=== PATIENT | female | born 1955 | race Caucasian/White ===

== ENCOUNTER 2017-06-22 10:17 | Emergency (ER) | payer OTHER ==
[2017-06-22 10:27] VITALS: TEMP 98.7; BMI 29.2
--- NOTE | 2017-06-22 10:33 | PDOC ---
History of Present Illness - General Chief Complaint: Respiratory Stated Complaint: SOB Time Seen by Provider: 06/22/17 10:32 - History of Present Illness Initial Comments: 06/22/17 10:47 Ms. Lam is a 62 yo female w/ pmh of Asthma and depression who presents to the ER c/o a 2 day history of cough, rasping voice, and chest pain that she reports goes to her back. She also reports she feels "congested." On further interview she admits to stubbing her toe as well last night and thinks it is broken (4th left). The patient denies headache and dizziness. Denies fever, chills, nausea, vomit, diarrhea and constipation. Denies dysuria, frequency, urgency and hematuria. Allergies: NKDA Social: 45 pack year history Past History - Past Medical History Allergies/Adverse Reactions: Allergies Allergy/AdvReac Type Severity Reaction Status Date / Time No Known Allergies Allergy Verified 06/22/17 10:27 Home Medications: Ambulatory Orders Alprazolam [Xanax] 1 mg PO PRN PRN 06/22/17 Azithromycin [Zithromax -] 250 mg PO UTDICT #6 tab 06/22/17 Budesonide/Formeterol Fumarate [SYMBICORT 80/4.5mcg -] 2 puff IH BID 06/22/17 Bupropion HCl [Wellbutrin Xl -] 450 mg PO DAILY 06/22/17 Prednisone 40 mg PO DAILY #12 tablet 06/22/17 Zolpidem Tartrate [Ambien] 10 mg PO HS 06/22/17 Asthma: Yes COPD: No - Suicide/Smoking/Psychosocial Hx Smoking History: Current every day smoker Number of Cigarettes Smoked Daily: 8 Information on smoking cessation initiated: No Hx Alcohol Use: Yes (SOCIAL) Drug/Substance Use Hx: No Review of Systems - Review of Systems Comments:: 06/22/17 10:51 GENERAL/CONSTITUTIONAL: No fever or chills. No weakness. HEAD, EYES, EARS, NOSE AND THROAT: No change in vision. No ear pain or discharge. No sore throat. CARDIOVASCULAR: +Midline chest pain she says "radiates to her back" RESPIRATORY: +Cough for several days, no wheezing, or hemoptysis. GASTROINTESTINAL: No nausea, vomiting, diarrhea or constipation. GENITOURINARY: No dysuria, frequency, or change in urination. MUSCULOSKELETAL: No joint or muscle swelling or pain. No neck or back pain. SKIN: No rash NEUROLOGIC: No headache, vertigo, loss of consciousness, or change in strength/ sensation. ENDOCRINE: No increased thirst. No abnormal weight change HEMATOLOGIC/LYMPHATIC: No anemia, easy bleeding, or history of blood clots. ALLERGIC/IMMUNOLOGIC: No hives or skin allergy. *Physical Exam - Vital Signs Last Vital Signs Temp Pulse Resp BP Pulse Ox 98.7 F 89 20 115/64 98 06/22/17 10:23 06/22/17 10:23 06/22/17 10:23 06/22/17 10:23 06/22/17 10:23 - Physical Exam Comments: 06/22/17 10:52 GENERAL: Awake, alert, and fully oriented, in no acute distress HEAD: No signs of trauma, normocephalic, atraumatic EYES: PERRLA, EOMI, sclera anicteric, conjunctiva clear ENT: Auricles normal inspection, hearing grossly normal, nares patent, oropharynx clear without exudates. Moist mucosa NECK: Normal ROM, supple, no lymphadenopathy, JVD, or masses LUNGS: +Reproducible pain with palpation of sternum. Speaks full sentences, clear to auscultation bilaterally HEART: Regular rate and rhythm, normal S1 and S2, no murmurs, rubs or gallops, peripheral pulses normal and equal bilaterally. ABDOMEN: Soft, nontender, normoactive bowel sounds. No guarding, no rebound. No masses EXTREMITIES: Normal inspection, Normal range of motion, no edema. No clubbing or cyanosis. NEUROLOGICAL: Cranial nerves II through XII grossly intact. Normal speech, normal gait, no focal sensorimotor deficits SKIN: Warm, Dry, normal turgor, no rashes or lesions noted. ED Treatment Course - LABORATORY CBC & Chemistry Diagram: 06/22/17 11:23 06/22/17 11:23 Medical Decision Making - Medical Decision Making 06/22/17 11:15 Ms. Lam presents w/ symptoms consistent with Asthma exacerbation. Given patient's family history of father w/ heart attack at age 63 and smoking history will r/o ACS w/ serial troponins/EKG as well. 06/22/17 14:58 CXR negative for acute pathology, labs all grossly wnl. Talked to patient's PCP as well and related findings. Will d/c patient to home with z-pack and 40mg prednisone for 3 days. Patient and PCP verbalized agreement with plan. 06/22/17 15:34 Foot X-ray negative for acute fracture. Ortho f/u given with instructions to use hard soled shoe until able to discuss with them. *DC/Admit/Observation/Transfer Diagnosis at time of Disposition: departure - Discharge Dispostion Disposition: HOME - Prescriptions Prescriptions: Azithromycin [Zithromax -] 250 mg PO UTDICT #6 tab Prednisone 40 mg PO DAILY #12 tablet - Referrals Referrals: Amador Simmons MD [Primary Care Provider] - Loco Cortez MD [Staff Physician] - - Patient Instructions Printed Discharge Instructions: DI for Asthma -- Adult, DI for Cough -- Adult Additional Instructions: Please return if any fever, chills, difficulty breathing, pain, or other concerning symptoms. Follow-up with Dr. Simmons as discussed in 1-2 days. Take medications as described. You can also follow-up with Dr. Cortez for your foot pain as needed. You should wear a hard soled shoe for protection until cleared. - Post Discharge Activity
--- NOTE | 2017-06-22 10:52 | PDOC ---
Attending Attestation - HPI HPI: 06/22/17 11:05 The patient is a 62 year old female, with a significant past medical history of Asthma and Depression who presents to the emergency department with difficulty breathing and chest pain for the past 2 days. Patient reports mid sternal chest pain, radiating to her back with associated SOB. Patient reports increasing dyspnea on exertion. Patient also endorses nonproductive cough, clear rhinorrhea , and congestion for the past week. Patient notes family hx of cardiac disease. Note, patient is a 45 year pack/day smoker. Patient denies any hormone therapy, recent travel, recent surgeries, hx of DVT. PCP: Dr. Soniya Clark - Physicial Exam PE: 06/22/17 11:05 Vitals: Triage Vital signs reviewed General Appearance: no acute distress, well nourished well developed, Head: Atraumatic, normocephalic Neck: Supple;No Nuchal rigidity Chest Wall: Nontender Cardiac: Regular rate and rhythm, no murmurs, no rubs, no gallops, Lungs: Clear to auscultation bilateral, good air movement bilaterally, Abdomen: Soft, nondistended, normal bowel sounds, nontender to palpation Extremities: Full range of motion to all extremities, no cyanosis, clubbing, or edema Skin: Warm and dry, no rashes or lesions, no petechiae - Medical Decision Making 06/22/17 11:05 Documentation prepared by Alejandrina Barrientos, acting as medical sales for Nabeel Ball MD, /DO. <Alejandrina Barrientos - Last Filed: 06/22/17 11:18> - Resident Resident Name: Moisés Sanford - ED Attending Attestation I have performed the following: I have examined & evaluated the patient, The case was reviewed & discussed with the resident, I agree w/resident's findings & plan, Exceptions are as noted - Medical Decision Making 06/22/17 15:30 Well-appearing no apparent distress heart score 3 very low suspicion for chest pain history and examination most consistent with viral URI [place] in by asthma exacerbation. Nonischemic EKG troponin negative 2. Status post DuoNeb patient feels much better Case discussed with patient's primary care provider we'll discharge on azithromycin and prednisone for 3 days she'll follow-up with her doctor on Saturday Findings, need for follow-up, strict return instructions discussed with patient. <Nabeel Ball - Last Filed: 06/22/17 15:31>
[2017-06-22] MEDS ORDERED: ALBUTEROL SO4 2.5/IPRATROPIUM 0.5 INH SOL 3 ML VIAL.NEB. NEB ONE (10:58)
[2017-06-22] MEDS: ALBUTEROL SO4 2.5/IPRATROPIUM 0.5 INH SOL 3 ML VIAL.NEB. NEB SCH ×4 (11:00→11:49)
[2017-06-22 11:38] LABS: BASOPHIL 1.4 % (0-2.0); EOSINOPHIL 1.9 % (0-4.5); MCHC 33.5 g/dl (32.0-36.0); MEAN CELL VOLUME 95.4 fl (80-96); MEAN PLT VOLUME 8.1 fl (7.5-11.1); PLATELET COUNT 267 K/MM3 (134-434); RDW 13.1 % (11.6-15.6); WHITE BLOOD COUNT 9.1 K/mm3 (4.0-10.0)
[2017-06-22 11:59] LABS: ALBUMIN 3.8 g/dl (3.4-5.0); ANION GAP 7 (8-16); CALCIUM 8.7 mg/dL (8.5-10.1); CO2 23 mmol/L (21-32); CREATININE 0.7 mg/dL (0.55-1.02); GLUCOSE,RANDOM 102 mg/dL (74-106); SGPT/ALT 30 U/L (12-78)
[2017-06-22 12:04] LABS: ALK PHOS 60 U/L (45-117); BILIRUBIN,TOTAL 0.8 mg/dL (0.2-1.0); CPK 100 IU/L (26-192); SGOT/AST 24 U/L (15-37); TOT PROT 7.4 g/dl (6.4-8.2); TROPONIN I < 0.02 ng/ml (0.00-0.05)
[2017-06-22 15:06] LABS: CPK 70 IU/L (26-192); TROPONIN I < 0.02 ng/ml (0.00-0.05)
[2017-06-22 15:49] VITALS: BP 126/70; PULSE 88
--- NOTE | 2017-06-23 08:44 | EKG ---
Test Reason : Blood Pressure : / mmHG Vent. Rate : 085 BPM Atrial Rate : 085 BPM P-R Int : 148 ms QRS Dur : 090 ms QT Int : 350 ms P-R-T Axes : 068 026 062 degrees QTc Int : 416 ms NORMAL SINUS RHYTHM POSSIBLE LEFT ATRIAL ENLARGEMENT BORDERLINE ECG WHEN COMPARED WITH ECG OF 29-JUL-2007 18:00, NO SIGNIFICANT CHANGE WAS FOUND Confirmed by ANITA CHICAS MD ([id number]) on 06/23/2017 8:44:04 AM Referred By: Confirmed By:ANITA CHICAS MD
== END 2017-06-22 15:48 | disposition home or self-care (01) ==
LOC: JER 10:17
PROC: 3E0F7GC Introduction of Other Therapeutic Substance into Respiratory Tract, Via Natural or Artificial Opening (ICD-10-PCS; principal; 2017-06-22)
DX: J45.901 Unspecified asthma with (acute) exacerbation (principal)
CPT/HCPCS: 36415; 71020-TC; 73630-TC-LT; 80053; 82550; 84484; 85025; 93005; 93010; 94640; 99284-25

== ENCOUNTER 2018-01-24 13:18 | Emergency (ER) | payer OTHER ==
[2018-01-24 13:25] VITALS: BMI 28.9
--- NOTE | 2018-01-24 13:48 | PDOC ---
History of Present Illness - General Chief Complaint: Headache Stated Complaint: HEADACHE Time Seen by Provider: 01/24/18 13:25 History Source: Patient Exam Limitations: No Limitations - History of Present Illness Initial Comments: 01/24/18 13:50 This is a 62 YOF with h/o asthma, anxiety, depression, and heavy smoking hx (10 cigarettes daily now; ~45 pack-year hx) who p/w two weeks of constant dull frontal headache with additional stronger left baptism throbbing episodes lasting seconds at a time and occurring too many times daily to count. The DE LEÓN is not made worse by light or noise and has not kept her from sleeping, but is present at all times during the day including when she awakens from sleep (even when she awakens during the night to urinate). She has tried many OTC medications without relief, including ibuprofen, Tylenol, naproxen, Sudafed, Zyrtec, and other medications. She suffered head trauma about a month ago when she fell onto her night stand and suffered an abrasion to the left top of the head, as well as a L>R black eye, and was not seen medically for this and did not have a head CT. She notes recent intentional weight loss, and very high stress/anxiety level because her dog needed to be euthanized about a month ago. She denies fever, chills, night sweats, unintentional weight loss, swollen lymph nodes, dizziness, nausea, vomiting, diarrhea, constipation, chest pain, SOB, abdominal pain, cough/runny nose/sore throat, numbness, tingling, focal weakness, urinary retention or incontinence, dysuria, or other symptoms. She gets regular mammograms which have been normal. Past History - Past Medical History Allergies/Adverse Reactions: Allergies Allergy/AdvReac Type Severity Reaction Status Date / Time No Known Allergies Allergy Verified 01/24/18 13:21 Home Medications: Ambulatory Orders Alprazolam [Xanax] 1 mg PO PRN PRN 06/22/17 Budesonide/Formeterol Fumarate [SYMBICORT 80/4.5mcg -] 2 puff IH BID 06/22/17 Bupropion HCl [Wellbutrin Xl -] 450 mg PO DAILY 06/22/17 Zolpidem Tartrate [Ambien] 10 mg PO HS 06/22/17 Prednisone 40 mg PO ASDIR 01/24/18 Asthma: Yes COPD: No - Immunization History Immunization Up to Date: Yes - Suicide/Smoking/Psychosocial Hx Smoking History: Current every day smoker Have you smoked in the past 12 months: No Number of Cigarettes Smoked Daily: 10 Information on smoking cessation initiated: No Hx Alcohol Use: No Drug/Substance Use Hx: No Review of Systems - Review of Systems Able to Perform ROS?: Yes Constitutional: No: Chills, Fever, Malaise, Night Sweats, Weakness, Unexplained wgt Loss HEENTM: No: Eye Pain, Blurred Vision, Recent change in vision, Ear Pain, Nose Congestion, Tinnitus, Nose Bleeding, Hearing Loss, Throat Pain, Dental Problems Respiratory: No: Cough, Shortness of Breath Cardiac (ROS): No: Chest Pain, Palpitations ABD/GI: No: Constipated, Diarrhea, Nausea, Vomiting : No: Burning, Dysuria Musculoskeletal: No: Back Pain, Neck Pain Integumentary: No: Bruising, Rash Neurological: Yes: Headache. No: Numbness, Tingling, Weakness, Dizziness Psychiatric: Yes: Anxiety, Depression, Stressors Endocrine: No: Unexplained Weight Gain, Unexplained Weight Loss *Physical Exam - Vital Signs Last Vital Signs Temp Pulse Resp BP Pulse Ox 98.3 F 90 18 122/72 97 01/24/18 13:22 01/24/18 13:22 01/24/18 13:22 01/24/18 13:22 01/24/18 13:22 01/24/18 15:40 Facial trauma exam: no midline vertebral tenderness C/T/L spine, no back hematoma, PERRLA, moving all extremities, no scalp contusion, no cephalohematoma , no scalp laceration, no raccoon eyes, no maria sign, no hemotympanum, no CSF rhinorrhea/otorrhea. - Physical Exam General Appearance: Yes: Nourished, Appropriately Dressed, Other ( intermittently tearful, laying on hospital bed with light out and holding forehead). No: Apparent Distress HEENT: positive: EOMI, LIVIA, Normal Voice, TMs Normal, Hearing Grossly Normal, Other (frontal and ethmoid sinus ttp, no left baptism ttp). negative: Pale Conjunctivae, Scleral Icterus (R), Scleral Icterus (L), Nasal Congestion Neck: positive: Trachea midline, Supple. negative: Tender, Rigid Respiratory/Chest: positive: Lungs Clear, Normal Breath Sounds. negative: Respiratory Distress, Crackles, Rhonchi, Stridor, Wheezing Cardiovascular: positive: Regular Rhythm, Regular Rate, S1, S2. negative: Edema , JVD, Murmur Gastrointestinal/Abdominal: positive: Normal Bowel Sounds, Soft. negative: Tender, Organomegaly, Pulsatile Mass, Guarding Musculoskeletal: positive: Normal Inspection. negative: Decreased Range of Motion, Vertebral Tenderness Extremity: positive: Normal Capillary Refill, Normal Inspection, Normal Range of Motion. negative: Tender, Cyanosis Integumentary: positive: Normal Color, Dry, Warm. 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 negative : EOM Palsy, Facial Droop, Numbness, Sensory Deficit, Confused, Disoriented Heart Score/ECG Review #1 01/24/18 14:42 NSR rate 69 with normal axis and intervals, no ischemic changes ED Treatment Course - LABORATORY CBC & Chemistry Diagram: 01/24/18 14:23 01/24/18 14:23 Medical Decision Making - Medical Decision Making 01/24/18 13:49 Adult female Pt p/w headache, no reported mechanism for injury, no new red flag symptoms (see HPI). DE LEÓN not worse on awakening in the AM, no B symptoms, trauma, fever, syncope, vision loss, n/t/w focally, sudden onset, etc. Initial Vital Signs Temp Pulse Resp BP Pulse Ox 98.3 F 90 18 122/72 97 01/24/18 13:22 01/24/18 13:22 01/24/18 13:22 01/24/18 13:22 01/24/18 13:22 Exam: Results as noted in Physical Exam section. DDX IBNLT primary DE LEÓN syndrome (tension/migraine/cluster/other incl. primary cough DE LEÓN, exertional DE LEÓN, postcoital DE LEÓN), trigeminal neuralgia, zoster, SAH ( mili. sudden onset), venous sinus thrombosis (mili. OCP//menstruating), subdural or epidural hematoma (mili. after trauma or childbirth), ruptured/ acutely expanded aneurysm, preeclampsia/eclampsia, encephalitis, meningitis, glaucoma, atypical PNA, idiopathic intracranial hypertension, GCA (uncommon <50 yo), mass lesion, brain metastasis (mili. known CA patients and/or DE LEÓN with increasing severity/frequency), brain abscess (mili. immunocompromised patients) , DKA, CO poisoning, etc. W/U ordered: CBCD CMP Mg Phos UA UCx hCG Head CT TX ordered: NSAIDs, Tylenol, Reglan+Benadryl, triptans (not in CAD, careful for serotonin syndrome), cluster 100% O2 Unlikely trigeminal neuralgia as Pt's pain is not burning/tingling. Unlikely cluster DE LEÓN given no scleral injection, females LL to have cluster DE LEÓN, she is a nonsmoker. Unlikely IIH as Pts sxs do not appear technician when laying flat, no vision change. Unlikely zoster as there is no skin tenderness, no lesions. Unlikely preeclampsia/eclampsia as Pt denies , not hypertensive on VS, no proteinuria on dipstick, no e/o organ damage. Unlikely SAH given lack of sudden onset, similar headaches before, nonfocal neuro. Unlikely ruptured/expanded aneurysm given nonfocal neuro, no h/o sentinel bleed- like DE LEÓN. Unlikely glaucoma given no vision change, no orbital abnormalities on exam, PERRLA. Unlikely encephalitis/meningitis as Pt's neuro exam is wnl, no fever/AMS/neck pain/stiffness. Unlikely GCA as Pt is not elderly, no baptism tenderness, jaw claudication, vision change, etc. Unlikely mass lesion/tumor as DE LEÓN has not been worsening over time, not exacerbated at night. EKG: Reviewed; results as noted in ECG Review section. CT: Nothing acute. Septal perforation. Patient states septal perforation is chronic since she was in her youth. Laboratory Tests 01/24/18 01/24/18 01/24/18 14:23 14:23 14:23 WBC 7.8 RBC 4.21 Hgb 13.6 Hct 39.9 MCV 95.0 MCH 32.3 MCHC 34.1 RDW 14.8 D Plt Count 288 MPV 9.0 D Absolute Neuts (auto) 5.2 Neutrophils % 67.0 Lymphocytes % 22.4 Monocytes % 7.9 Eosinophils % 1.9 Basophils % 0.8 Nucleated RBC % 0 ESR 17 PT with INR 11.50 INR 1.02 PTT (Actin FS) 31.5 Sodium 139 Potassium 4.0 Chloride 107 Carbon Dioxide 26 Anion Gap 6 L BUN 22 H Creatinine 0.7 Creat Clearance w eGFR > 60 Random Glucose 127 H Calcium 9.0 Phosphorus 3.2 Magnesium 2.2 Total Bilirubin 0.4 AST 14 L ALT 25 Alkaline Phosphatase 56 Total Protein 6.6 Albumin 3.6 Urine Color Urine Appearance Urine pH Ur Specific [place] Urine Protein Urine Glucose (UA) Urine Ketones Urine Blood Urine Nitrite Urine Bilirubin Urine Urobilinogen Ur Leukocyte Esterase 01/24/18 15:56 WBC RBC Hgb Hct MCV MCH MCHC RDW Plt Count MPV Absolute Neuts (auto) Neutrophils % Lymphocytes % Monocytes % Eosinophils % Basophils % Nucleated RBC % ESR PT with INR INR PTT (Actin FS) Sodium Potassium Chloride Carbon Dioxide Anion Gap BUN Creatinine Creat Clearance w eGFR Random Glucose Calcium Phosphorus Magnesium Total Bilirubin AST ALT Alkaline Phosphatase Total Protein Albumin Urine Color Ltyellow Urine Appearance Clear Urine pH 5.0 Ur Specific [place] 1.009 Urine Protein Negative Urine Glucose (UA) Negative Urine Ketones Negative Urine Blood Negative Urine Nitrite Negative Urine Bilirubin Negative Urine Urobilinogen Negative Ur Leukocyte Esterase Negative Reassessment: Patient feels better, wants to go home, repeat exam benign. Vital Signs Temperature 98.5 F 01/24/18 16:41 Pulse Rate 77 01/24/18 16:41 Respiratory Rate 16 01/24/18 16:41 Blood Pressure 103/63 01/24/18 16:41 O2 Sat by Pulse Oximetry (%) 95 01/24/18 16:41 DISCHARGE The Pt has gotten significant relief of symptoms with ED medications. Workup is not concerning for emergency-level pathology at this time. The Pt is appropriate for discharge home w/ close outpatient f/u. She is comfortable with this plan. Afrin given; patient also will take Sudafed if needed. She will take Motrin and/or Tylenol for pain. She will follow up with her regular doctor in the next 1-3 days. Specific return precautions are discussed and they will come back to the ER if necessary. *DC/Admit/Observation/Transfer Diagnosis at time of Disposition: Nasal septal perforation Headache Qualifiers: Headache type: unspecified Headache chronicity pattern: unspecified pattern Intractability: not intractable Qualified Code(s): R51 - Headache Sinusitis Qualifiers: Sinusitis location: unspecified location Chronicity: unspecified Qualified Code (s): J32.9 - Chronic sinusitis, unspecified - Discharge Dispostion Disposition: HOME Condition at time of disposition: Stable Decision to Admit order: No - Referrals Referrals: Amador Simmons MD [Primary Care Provider] - - Patient Instructions Additional Instructions: You were seen in the ER for a headache. We did an exam, labs, and a head CT, and we did not find any signs of an emergency. Your pain improved with the medications we gave you here in the ER. After our assessment, we believe you are not having a medical emergency and you are safe to go home. Please take over -the-counter pain relievers like naproxen (Aleve) or ibuprofen (Motrin) or Tylenol. Stay very well-hydrated, and try avoiding foods containing the chemicals tyramine and nitrates (such as chocolate, cheese, and processed meats ) because these are associated with migraine-type headaches. Please use Afrin nasal spray and decongestants. Follow up with your regular doctor(s) in the next 1-3 days. Call their clinic [facility], tell them you were seen in the ER, and tell them you need an appointment. During this appointment, talk with your regular doctor about oral contraceptives (if you are taking them) because these also can be associated with some types of headaches. Please come back to the ER at any time, 24 hours a day, for any new or worsening symptoms, like worsening headache, new numbness/tingling, fainting, dizziness, new vision changes, high fever, or other symptoms. If you are having symptoms that make it unsafe to drive, please call 911. - Post Discharge Activity
[2018-01-24] MEDS ORDERED: SODIUM CHLORIDE 0.9% 500 ML INFUS.BAG IV ONE (14:15)
[2018-01-24] MEDS ORDERED: METOCLOPRAMIDE HCL INJECTION 10 MG/2 ML VIAL IVPUSH ONE (14:16)
[2018-01-24] MEDS ORDERED: METOCLOPRAMIDE HCL INJECTION 10 MG/2 ML VIAL ONE (14:23)
--- NOTE | 2018-01-24 15:06 | PDOC ---
Attending Attestation - Resident Resident Name: LorenzoCamila - ED Attending Attestation I have performed the following: I have examined & evaluated the patient, The case was reviewed & discussed with the resident, I agree w/resident's findings & plan, Exceptions are as noted - HPI HPI: 01/24/18 15:03 62 yo F s/p remote head injury when hit face on bed stand few weeks ago, had facial bruising and periorbital eccymosis at the time, now with persistant headache x 2 weeks. frontal, no mod or relieving factors. no associated weakness. no n/v no f/c has been taking psuedophed and zyrtec no relief. no h/o similar headaches. - Physicial Exam PE: 01/24/18 15:04 awake alert lungs clear heart rrr no mrg. abd soft nt nd. frontal ethmoid sinus tenderness on palpation. nuero exam facies symmetric, 5/5 all four ext CN intact. skin warm and dry. - Medical Decision Making 01/24/18 15:05 differential sinusitis and sinus headache., ich, tension headache. anemia, electrolyte abnormality. plan ct head, facial bones, labs iv hydration meds. reassess. <Linda Yousif - Last Filed: 01/24/18 15:02> - HPI HPI: The patient is a 62 F, with PMHx of depression & anxiety, who presents with a headache for 2 weeks. The patient describes the headache as constant, frontal as well as episodes of throbbing of left church lasting for several seconds. She states that her headache begin upon awakening. She states she has tried various OTC including tylenol, motrin, zyrtec, and sudafed with no relief. She states she called Dr. Simmons, who referred her to the ED today. She also reports that she fell and hit the top of the left side of her head 1 month ago and sustained left greater than right black eyes. She says that she did not seek medical attention after the fall. She also notes that she has been under a lot of stress recently due to the fact that she had to put her dog down. She denies recent vision changes, numbness or tingling. Denies photophobia, phonophobia. Denies recent weight loss, night sweats, or lymphadenopathy. 01/24/18 15:06 <Danae Ferreira - Last Filed: 01/24/18 15:07> Heart Score/ECG Review #1 General ECG Interpretation: Sinus Rhythm, Normal Rate (69), Normal Intervals, No acute ischemic changes <Linda Yousif - Last Filed: 01/24/18 15:02>
[2018-01-24 15:07] LABS: BASO % 0.8 % (0-2.0); EOS % 1.9 % (0-4.5); HEMATOCRIT 39.9 % (32.4-45.2); HEMOGLOBIN 13.6 GM/dL (10.7-15.3); LYMPH % 22.4 % (8-40); MCH 32.3 pg (25.7-33.7); MCHC 34.1 g/dl (32.0-36.0); MONO % 7.9 % (3.8-10.2); PLATELET COUNT 288 K/MM3 (134-434); RBC 4.21 M/mm3 (3.60-5.2); RDW 14.8 % (11.6-15.6); WHITE BLOOD COUNT 7.8 K/mm3 (4.0-10.0)
[2018-01-24 15:18] LABS: INR 1.02 (0.82-1.09); PROTHROMBIN TIME (PATIENT) 11.5 SEC (9.7-13.0)
[2018-01-24 15:21] LABS: ACTIVATED PTT 31.5 SECONDS (25.2-36.5)
[2018-01-24 15:23] LABS: CHLORIDE 107 mmol/L (98-107); SODIUM 139 mmol/L (136-145)
[2018-01-24 15:31] LABS: ALBUMIN 3.6 g/dl (3.4-5.0); ALK PHOS 56 U/L (45-117); ANION GAP 6 (8-16); BILIRUBIN,TOTAL 0.4 mg/dL (0.2-1.0); BLOOD UREA NITROGEN 22 mg/dL (7-18); CO2 26 mmol/L (21-32); CREATININE 0.7 mg/dL (0.55-1.02); GLUCOSE,RANDOM 127 mg/dL (74-106); MAGNESIUM 2.2 mg/dL (1.8-2.4); PHOSPHOROUS 3.2 mg/dL (2.5-4.9); SGOT/AST 14 U/L (15-37); SGPT/ALT 25 U/L (12-78); TOT PROT 6.6 g/dl (6.4-8.2)
[2018-01-24] MEDS ORDERED: OXYMETAZOLINE 0.05% NASAL SOLUTION 15 ML BOTTLE NS ONE (15:35)
[2018-01-24] MEDS ORDERED: KETOROLAC TROMETHAMINE 30 MG/1 ML VIAL IVPUSH ONE (15:36)
[2018-01-24] MEDS ORDERED: PSEUDOEPHEDRINE HCL 30 MG TABLET PO ONE (15:45)
[2018-01-24] MEDS ORDERED: PSEUDOEPHEDRINE HCL 60 MG TABLET ONE (15:49)
[2018-01-24] MEDS ORDERED: KETOROLAC TROMETHAMINE 30 MG/1 ML VIAL ONE (15:49)
[2018-01-24 15:50] LABS: ERYTHROCYTE SEDIMENTATION RATE 17 mm/hr (0-30)
[2018-01-24 16:20] LABS: URINE APPEARANCE CLEAR; URINE BILIRUBIN NEGATIVE (<2.0 mg/dL); URINE COLOR LTYELLOW; URINE GLUCOSE (UA) NEGATIVE (NEGATIVE); URINE KETONE NEGATIVE (NEGATIVE); URINE LEUK ESTERASE NEGATIVE (NEGATIVE); URINE NITRITE NEGATIVE (NEGATIVE); URINE PROTEIN NEGATIVE (NEGATIVE); URINE UROBILINOGEN NEGATIVE mg/dL (0.2-1.0)
[2018-01-24 16:42] VITALS: BP 103/63; PULSE 77; TEMP 98.5
--- NOTE | 2018-01-26 10:13 | EKG ---
Test Reason : Blood Pressure : / mmHG Vent. Rate : 069 BPM Atrial Rate : 069 BPM P-R Int : 152 ms QRS Dur : 090 ms QT Int : 362 ms P-R-T Axes : 049 027 037 degrees QTc Int : 387 ms NORMAL SINUS RHYTHM NORMAL ECG WHEN COMPARED WITH ECG OF 22-JUN-2017 10:30, NO SIGNIFICANT CHANGE WAS FOUND Confirmed by BUBBA LOCK MD ([id number]) on 01/26/2018 10:12:38 AM Referred By: Confirmed By:BUBBA LOCK MD
== END 2018-01-24 17:08 | disposition home or self-care (01) ==
LOC: JER 13:18
PROC: 3E0337Z Introduction of Electrolytic and Water Balance Substance into Peripheral Vein, Percutaneous Approach (ICD-10-PCS; principal; 2018-01-24)
PROC: 3E033GC Introduction of Other Therapeutic Substance into Peripheral Vein, Percutaneous Approach (ICD-10-PCS; 2018-01-24)
PROC: 3E0333Z Introduction of Anti-inflammatory into Peripheral Vein, Percutaneous Approach (ICD-10-PCS; 2018-01-24)
PROC: 3E033GC Introduction of Other Therapeutic Substance into Peripheral Vein, Percutaneous Approach (ICD-10-PCS; 2018-01-24)
DX: J32.9 Chronic sinusitis, unspecified (principal); J34.89 Other specified disorders of nose and nasal sinuses; F17.210 Nicotine dependence, cigarettes, uncomplicated; J45.909 Unspecified asthma, uncomplicated; F41.9 Anxiety disorder, unspecified; F32.9 Major depressive disorder, single episode, unspecified
CPT/HCPCS: 36415; 70450-TC; 70486-TC; 80053; 81003; 83735; 84100; 85025; 85610; 85651; 85730; 87086; 93005; 93010; 96374; 96375; 99283-25

== ENCOUNTER 2018-06-16 10:26 | Emergency (ER) | payer OTHER ==
[2018-06-16 10:32] VITALS: TEMP 102; BMI 29.2
[2018-06-16 11:25] LABS: BASO % 0.4 % (0-2.0); EOS % 1.8 % (0-4.5); HEMOGLOBIN 12.8 GM/dL (10.7-15.3); LYMPH % 13.6 % (8-40); MCH 31.4 pg (25.7-33.7); MCHC 32.8 g/dl (32.0-36.0); MEAN CELL VOLUME 95.7 fl (80-96); MEAN PLT VOLUME 7.7 fl (7.5-11.1); MONO % 5.9 % (3.8-10.2); NEUT % 78.3 % (42.8-82.8); PLATELET COUNT 202 K/MM3 (134-434); RBC 4.07 M/mm3 (3.60-5.2); RDW 14.5 % (11.6-15.6); WHITE BLOOD COUNT 8.3 K/mm3 (4.0-10.0)
[2018-06-16 11:31] LABS: INR 0.93 (0.83-1.09)
[2018-06-16 11:48] LABS: ALBUMIN 3.4 g/dl (3.4-5.0); ALK PHOS 64 U/L (45-117); ANION GAP 9 MMOL/L (8-16); BILIRUBIN,TOTAL 0.5 mg/dL (0.2-1); BLOOD UREA NITROGEN 8 mg/dL (7-18); CALCIUM 8.3 mg/dL (8.5-10.1); CHLORIDE 110 mmol/L (98-107); CO2 22 mmol/L (21-32); CREATININE 0.5 mg/dL (0.55-1.3); GLUCOSE,RANDOM 90 mg/dL (74-106); POTASSIUM 3.9 mmol/L (3.5-5.1); SGOT/AST 25 U/L (15-37); SGPT/ALT 68 U/L (13-61); SODIUM 141 mmol/L (136-145); TOT PROT 6.5 g/dl (6.4-8.2)
--- NOTE | 2018-06-16 11:50 | PDOC ---
History of Present Illness - General History Source: Patient Exam Limitations: No Limitations - History of Present Illness Initial Comments: 06/16/18 12:59 The patient is a 64 year old female, with a significant past medical history of depression, anxiety, and essential tremor, who presents to the emergency department with chest pain since 6:30 PM last night. She states EMS arrived last night at 830 PM and took her vitals, however, the patient attributed her pressure pain to anxiety and declined coming to the ED at that time. She states the chest pain is midsternal and exacerbated with taking deep breaths. She reports some mild intermittent SOB. Carotid doppler studies within the past 6 months The patient denies headache and dizziness. The patient denies fever, chills, nausea, vomit, diarrhea and constipation. The patient denies dysuria, frequency , urgency and hematuria. Allergies: NKDA Social history: 8-10 cigarettes daily since age 19. Occasional ETOH. PCP - Dr. Simmons Aboriginal Liaison Officer - Dr. Thompson <Anitra Bejarano - Last Filed: 06/16/18 12:59> <Nabeel Ball - Last Filed: 06/16/18 14:59> - General Chief Complaint: Chest Pain Stated Complaint: SOB Time Seen by Provider: 06/16/18 11:49 Past History <Anitra Bejarano - Last Filed: 06/16/18 12:59> - Past Medical History Asthma: Yes COPD: No Psychiatric Problems: Yes (anxiety depression) - Immunization History Immunization Up to Date: Yes - Suicide/Smoking/Psychosocial Hx Smoking History: Never smoked Have you smoked in the past 12 months: No Number of Cigarettes Smoked Daily: 10 Information on smoking cessation initiated: No Hx Alcohol Use: No Drug/Substance Use Hx: No Substance Use Type: None <Nabeel Ball - Last Filed: 06/16/18 14:59> - Past Medical History Allergies/Adverse Reactions: Allergies Allergy/AdvReac Type Severity Reaction Status Date / Time No Known Allergies Allergy Verified 06/16/18 10:29 Home Medications: Ambulatory Orders Alprazolam [Xanax] 1 mg PO PRN PRN 06/22/17 Budesonide/Formeterol Fumarate [SYMBICORT 80/4.5mcg -] 2 puff IH BID 06/22/17 Bupropion HCl [Wellbutrin Xl -] 450 mg PO DAILY 06/22/17 Zolpidem Tartrate [Ambien] 10 mg PO HS 06/22/17 Atorvastatin Ca [Lipitor] 10 mg PO HS 06/16/18 Review of Systems - Review of Systems Able to Perform ROS?: Yes Comments:: 06/16/18 12:59 Constitutional: No recent illness; no fever ENT: No sore throat Cardiovascular: (+) pleuritic chest pain. No palpitations; Pulmonary: (+) SOB. No cough; Gastrointestinal: No nausea; no vomiting; no diarrhea Genitourinary: No urinary problems; no hematuria Skin: No rash Lymph system: No swollen glands Musculoskeletal: No joint swelling Neurological: No weakness; No numbness; No Headache; no vertigo; no lightheadedness Psychiatric:No anxiety; no depression ROS: A complete review of 10 out of 10 review of systems is taken and is negative apart from what is previously mentioned below and in the HPI. <Anitra Bejarano - Last Filed: 06/16/18 12:59> *Physical Exam - Vital Signs Last Vital Signs Temp Pulse Resp BP Pulse Ox 102 F H 101 H 22 H 130/77 100 06/16/18 10:29 06/16/18 10:29 06/16/18 10:29 06/16/18 10:29 06/16/18 10:29 - Physical Exam Comments: 06/16/18 12:59 Vitals: Triage vital signs reviewed General Appearance: No acute distress, well nourished, well developed Head: Atraumatic Eyes: Pupils equal reactive round, extraocular movement intact Neck: Supple; No nuchal rigidity Chest Wall: Nontender Cardiac: Regular rate and rhythm, no murmurs, no rubs, no gallops Lungs: Clear to auscultation bilateral, good air movement bilaterally Abdomen: Soft, nondistended, normal bowel sounds, nontender to palpation Extremities: Full range of motion to all extremities, no cyanosis, clubbing, or edema Skin: Warm and dry, no rashes or lesions, no rash, no petechiae Neuro: AOX3; Cranial Nerves 2-12 grossly intact, Strength intact to all extremities, Sensation intact to all extremities, gait normal Psych: Normal mood, normal affect <Anitra Bejarano - Last Filed: 06/16/18 12:59> - Vital Signs Last Vital Signs Temp Pulse Resp BP Pulse Ox 102 F H 101 H 22 H 130/77 100 06/16/18 10:29 06/16/18 10:29 06/16/18 10:29 06/16/18 10:29 06/16/18 10:29 <Nabeel Ball - Last Filed: 06/16/18 14:59> ED Treatment Course - LABORATORY CBC & Chemistry Diagram: 06/16/18 11:15 06/16/18 11:15 - ADDITIONAL ORDERS Additional order review: Laboratory Results 06/16/18 06/16/18 11:15 11:15 PT with INR 11.00 INR 0.93 Sodium 141 Potassium 3.9 Chloride 110 H Carbon Dioxide 22 Anion Gap 9 BUN 8 Creatinine 0.5 L Creat Clearance w eGFR > 60 Random Glucose 90 Calcium 8.3 L Total Bilirubin 0.5 AST 25 ALT 68 H Alkaline Phosphatase 64 Creatine Kinase 51 Troponin I < 0.02 Total Protein 6.5 Albumin 3.4 06/16/18 11:15 RBC 4.07 MCV 95.7 MCHC 32.8 RDW 14.5 MPV 7.7 D Neutrophils % 78.3 Lymphocytes % 13.6 D Monocytes % 5.9 Eosinophils % 1.8 Basophils % 0.4 - Medications Given in the ED: ED Medications Discontinued Medications Generic Name Dose Route Start Last Admin Trade Name Merari PRN Reason Stop Dose Admin Acetaminophen 1,000 mg 06/16/18 12:49 06/16/18 12:54 Ofirmev Injection - IVPB 06/16/18 12:50 1,000 mg ONCE ONE Administration Lorazepam 0.5 mg 06/16/18 12:49 06/16/18 12:54 Ativan Injection - IVPUSH 06/16/18 12:50 0.5 mg ONCE ONE Administration <Anitra Bejarano - Last Filed: 06/16/18 12:59> - LABORATORY CBC & Chemistry Diagram: 06/16/18 11:15 06/16/18 11:15 - ADDITIONAL ORDERS Additional order review: Laboratory Results 06/16/18 06/16/18 11:15 11:15 PT with INR 11.00 INR 0.93 Sodium 141 Potassium 3.9 Chloride 110 H Carbon Dioxide 22 Anion Gap 9 BUN 8 Creatinine 0.5 L Creat Clearance w eGFR > 60 Random Glucose 90 Calcium 8.3 L Total Bilirubin 0.5 AST 25 ALT 68 H Alkaline Phosphatase 64 Creatine Kinase 51 Troponin I < 0.02 Total Protein 6.5 Albumin 3.4 06/16/18 11:15 RBC 4.07 MCV 95.7 MCHC 32.8 RDW 14.5 MPV 7.7 D Neutrophils % 78.3 Lymphocytes % 13.6 D Monocytes % 5.9 Eosinophils % 1.8 Basophils % 0.4 - RADIOLOGY Radiology Studies Ordered: Category Date Time Status CHEST X-RAY PORTABLE* [RAD] Stat Radiology 06/16/18 10:58 Completed <Nabeel Ball - Last Filed: 06/16/18 14:59> Medical Decision Making - Medical Decision Making 06/16/18 14:59 Atypical chest discomfort heart score to nonischemic EKG patient feels somewhat better after pain medication patient did complain of some pleuritic component given age was unable to use PERC criteria D-dimer sent Reevaluation d-dimer returned elevated CTA ordered CTA negative At this time low suspicion for ACS and PE patient will follow up with her primary care provider this week. Findings, need for follow-up, strict return instructions discussed with patient. <Nabeel Ball - Last Filed: 06/16/18 14:59> *DC/Admit/Observation/Transfer - Attestations Scribe Attestion: 06/16/18 13:00 Documentation prepared by Anitra Bejarano, acting as medical management trainer for Nabeel Ball MD <Anitra Bejarano - Last Filed: 06/16/18 12:59> - Discharge Dispostion Decision to Admit order: No <Nabeel Ball - Last Filed: 06/16/18 14:59> Diagnosis at time of Disposition: Atypical chest pain - Discharge Dispostion Disposition: HOME - Referrals Referrals: Amador Simmons MD [Primary Care Provider] - - Patient Instructions Printed Discharge Instructions: DI for Atypical Chest Pain Additional Instructions: Drink plenty of fluids. Follow-up with her doctor this week. Return to the emergency department for any severe worsening symptoms or for any concerns. - Post Discharge Activity
[2018-06-16] MEDS ORDERED: ACETAMINOPHEN INJECTION 100 ML IVPB ONE (12:43)
[2018-06-16] MEDS ORDERED: LORazepam 2 MG/ML SDV VIAL ONE (12:43)
[2018-06-16] MEDS ORDERED: ACETAMINOPHEN 1000 MG/100 ML VIAL (NON FORMULARY) IVPB ONE (12:49)
--- NOTE | 2018-06-16 13:30 | EKG ---
Test Reason : Blood Pressure : / mmHG Vent. Rate : 095 BPM Atrial Rate : 095 BPM P-R Int : 140 ms QRS Dur : 078 ms QT Int : 336 ms P-R-T Axes : 077 017 040 degrees QTc Int : 422 ms NORMAL SINUS RHYTHM POSSIBLE LEFT ATRIAL ENLARGEMENT BORDERLINE ECG WHEN COMPARED WITH ECG OF 24-JAN-2018 14:34, NO SIGNIFICANT CHANGE WAS FOUND Confirmed by MARIBEL HERNANDEZ MD ([id number]) on 06/16/2018 1:30:00 PM Referred By: Confirmed By:MARIBEL HERNANDEZ MD
[2018-06-16 15:44] VITALS: BP 115/63; PULSE 109
== END 2018-06-16 15:45 | disposition home or self-care (01) ==
LOC: JER 10:26
PROC: 3E033NZ Introduction of Analgesics, Hypnotics, Sedatives into Peripheral Vein, Percutaneous Approach (ICD-10-PCS; principal; 2018-06-16)
PROC: 3E033NZ Introduction of Analgesics, Hypnotics, Sedatives into Peripheral Vein, Percutaneous Approach (ICD-10-PCS; 2018-06-16)
PROC: 3E033NZ Introduction of Analgesics, Hypnotics, Sedatives into Peripheral Vein, Percutaneous Approach (ICD-10-PCS; 2018-06-16)
DX: R07.89 Other chest pain (principal); F41.9 Anxiety disorder, unspecified; J45.909 Unspecified asthma, uncomplicated
CPT/HCPCS: 36415; 71045-TC-FY; 71275-TC; 80053; 82550; 84484; 85025; 85379; 85610; 93005; 93010; 96374; 96375; 96376; 99283-25; J0131

== ENCOUNTER 2018-07-06 09:21 | Emergency (ER) | payer OTHER ==
[2018-07-06 09:40] VITALS: TEMP 97.5; BMI 22.3
--- NOTE | 2018-07-06 09:43 | PDOC ---
History of Present Illness - General Chief Complaint: Weakness Stated Complaint: INTOX Time Seen by Provider: 07/06/18 09:37 History Source: Patient Exam Limitations: Intoxication - History of Present Illness Initial Comments: 07/06/18 09:38 Pt is a 63yo F with PMH of Asthma/COPD BIBA for intoxication. Per pt, daughter called ambulance because pt was intoxicated. Pt says she drank less than half a bottle of vodka last night and states "it doesn't take much to get me drunk". She was in the bathtub. Pt denies falling or hitting her head. Pt is complaining of SOB and endorses cough productive of yellow phlegm x2 days and headache. She is not on oxygen at home. Denies falls, chest pain, abdominal pain , n/v/d, urinary symptoms. Denies illicit drug use. Denies drinking daily, but admits to binge drinking. PMD: PMH: COPD PSH: knee surgery Meds: see med rec Allergies: nkda Social: occasional alcohol use. 1/2ppd smoker Past History - Past Medical History Allergies/Adverse Reactions: Allergies Allergy/AdvReac Type Severity Reaction Status Date / Time No Known Allergies Allergy Verified 07/06/18 09:40 Home Medications: Ambulatory Orders Alprazolam [Xanax] 1 mg PO PRN PRN 06/22/17 Budesonide/Formeterol Fumarate [SYMBICORT 80/4.5mcg -] 2 puff IH BID 06/22/17 Bupropion HCl [Wellbutrin Xl -] 450 mg PO DAILY 06/22/17 Zolpidem Tartrate [Ambien] 10 mg PO HS 06/22/17 Atorvastatin Ca [Lipitor] 10 mg PO HS 06/16/18 Albuterol Sulfate Inhaler - [Ventolin HFA Inhaler -] 1 - 2 inh PO DAILY #1 inhaler 07/06/18 Prednisone [Prednisone 50 MG TABLETS] 40 mg PO DAILY #5 tablet 07/06/18 Asthma: Yes COPD: No Psychiatric Problems: Yes (anxiety depression) - Immunization History Immunization Up to Date: Yes - Suicide/Smoking/Psychosocial Hx Smoking History: Never smoked Have you smoked in the past 12 months: No Number of Cigarettes Smoked Daily: 10 Hx Alcohol Use: No Drug/Substance Use Hx: No Substance Use Type: None Review of Systems - Review of Systems Constitutional: Yes: Other (cold). No: Chills, Fever HEENTM: No: Symptoms Reported Respiratory: Yes: Cough, Shortness of Breath, Wheezing Cardiac (ROS): No: Chest Pain, Lightheadedness, Palpitations, Syncope ABD/GI: No: Constipated, Diarrhea, Nausea, Vomiting : No: Symptoms Reported Musculoskeletal: No: Back Pain, Joint Pain, Muscle Weakness, Neck Pain Integumentary: No: Symptoms Reported Neurological: Yes: Headache. No: Numbness, Paresthesia, Tingling, Tremors Psychiatric: Yes: Other (Denies HI/SI) *Physical Exam - Physical Exam General Appearance: Yes: Nourished, Appropriately Dressed, Intoxicated HEENT: positive: EOMI, LIVIA, Pharynx Normal (dry) Neck: positive: Trachea midline, Supple. negative: Lymphadenopathy (R), Lymphadenopathy (L) Respiratory/Chest: positive: Wheezing (diffuse in both lung frye). negative: Chest Tender, Lungs Clear Cardiovascular: positive: Regular Rhythm, Regular Rate, S1, S2. negative: Edema , JVD, Murmur Vascular Pulses: Carotid (R): 2+, Carotid (L): 2+, Dorsalis-Pedis (R): 2+, Doralis-Pedis (L): 2+ Gastrointestinal/Abdominal: positive: Normal Bowel Sounds, Soft. negative: Distended, Guarding, Rebound, Tenderness Musculoskeletal: negative: CVA Tenderness, Vertebral Tenderness Integumentary: positive: Normal Color, Dry, Warm Neurologic: positive: manager laundry II-XII NML intact, Fully Oriented, Alert, Normal Response, Motor Strength 5/5 ED Treatment Course - LABORATORY CBC & Chemistry Diagram: 07/06/18 09:51 07/06/18 09:51 Medical Decision Making - Medical Decision Making 07/06/18 09:44 Pt is a 63yo F with PMH of Asthma/COPD BIBA for intoxication. Per pt, daughter called ambulance because pt was intoxicated. Pt says she drank less than half a bottle of vodka last night and states "it doesn't take much to get me drunk". Pt denies falling or hitting her head. Pt is complaining of SOB and endorses cough productive of yellow phlegm x2 days and headache. She is not on oxygen at home. Denies falls, chest pain, abdominal pain, n/v/d, urinary symptoms. Denies illicit drug use. Denies drinking daily. Vitals: low O2 saturation PE: diffuse wheezing bilaterally. No vertebral tenderness 07/06/18 09:45 Pt started on NC. low 90s saturation. 07/06/18 13:23 Laboratory Tests 07/06/18 09:51 POC VBG pCO2 61.4 H* Pt has history of COPD. Laboratory Tests 07/06/18 07/06/18 09:51 09:51 VBG pH 7.28 L Mixed VBG HCO3 28.0 H Sodium 146 H Potassium 4.0 Chloride 113 H Carbon Dioxide 29 Anion Gap 4 L Calcium 7.9 L Pt has signs of respiratory acidosis. Hypocalcemia however asymptomatic. Pt denies increased sputum production, just endorses increased dyspnea. Does not need abx at this time. Pt walked to phone and back. O2 97%. States she does not feel short of breath. Pt is ambulatory, and not tearful. Will give Rx for albuterol and prednisone. 07/06/18 13:23 07/06/18 13:26 07/06/18 13:27 *DC/Admit/Observation/Transfer Diagnosis at time of Disposition: Intoxication, Shortness of breath - Discharge Dispostion Disposition: HOME Condition at time of disposition: Improved Decision to Admit order: No - Prescriptions Prescriptions: Albuterol Sulfate Inhaler - [Ventolin HFA Inhaler -] 1 - 2 inh PO DAILY #1 inhaler Prednisone [Prednisone 50 MG TABLETS] 40 mg PO DAILY #5 tablet - Referrals Referrals: Amador Simmons MD [Staff Physician] - - Patient Instructions Additional Instructions: You were brought to the emergency room for intoxication but you were also short of breath. A prescription has been sent to your pharmacy for an inhaler and a short course of steroids. Please use as directed. I highly recommend you follow up with your primary care doctor in the next few days for management of COPD. It is never too late to stop smoking! Come back to the emergency room if you feel short of breath, you have fevers, you have chest pain or if any new concerning symptom develops. Thank you. Happy Holidays! - Post Discharge Activity
[2018-07-06] MEDS ORDERED: ALBUTEROL SO4 2.5/IPRATROPIUM 0.5 INH SOL 3 ML VIAL.NEB. NEB ONE ×2 (09:46→10:13)
[2018-07-06] MEDS ORDERED: methylPREDNISolone NA SUCC 125 MG/2 ML VIAL IVPUSH ONE (09:47)
[2018-07-06] MEDS ORDERED: FOLIC ACID INJECTION - 1 MG, THIAMINE HCL 100 MG, MULTIVIT INJECTION ADULT 10 ML in SOD... IVPB ONE (09:47)
--- NOTE | 2018-07-06 09:55 | PDOC ---
Attending Attestation - [facility] HPI: 07/06/18 11:04 The patient is a 63 year old female with a significant past medical history of depression, anxiety, asthma, COPD, and essential tremors who presents to the emergency department via EMS for intoxication since earlier this morning. The patient reports that she woke up at about 9am and began drinking. She states that she went through about a half a bottle of vodka. The patient reports that her daughter called EMS to have her brought in to the hospital. She reports that she has been dealing with various personal problems at home drinks to cope. The patient states that she binge drinks weekly. She denies any recent fall or injury . the patient reports that she has also been experiencing some shortness of breath with a persistent cough for several days. She denies any known sick contact. The patient denies any vision change, numbness weakness or tingling sensation. She denies any fever, chills, nausea, vomiting, diarrhea, constipation or urinary symptoms. She denies any chest pain, or dizziness. The patient denies any other complaints. Documentation prepared by Loy Padilla, acting as biomedical engineering supervisor for Lencho Rodarte MD. <Loy Padilla - Last Filed: 07/06/18 11:04> - Resident Resident Name: Brittney Moreno - ED Attending Attestation I have performed the following: I have examined & evaluated the patient, The case was reviewed & discussed with the resident, I agree w/resident's findings & plan, Exceptions are as noted - HPI HPI: 07/06/18 09:52 - Physicial Exam PE: 07/06/18 10:19 GENERAL: The patient is awake, alert, and fully oriented, Nontoxic - in no acute distress. HEAD: Normocephalic, atraumatic. EYES: extraocular movements intact, sclera anicteric, conjunctiva clear. ENT: Normal voice, Moist mucous membranes. NECK: Normal range of motion, supple LUNGS: Wheezing bilaterally, no acute respiratory distress HEART: Regular rate and rhythm, normal S1 and S2 without murmur, rub or gallop. ABDOMEN: Soft, nontender No guarding, no rebound. . No CVA tenderness EXTREMITIES: Normal range of motion, no edema. NEUROLOGICAL: No facial assymetry, Normal speech, PSYCH: Tearful affect SKIN: Warm, Dry, normal turgor, - Medical Decision Making 07/06/18 10:18 63y F hx of asthma, copd, daughter called EMS due to intoxication. Pt states she is very depressed recently due to family issues, and typically binge drinks to cope. denies SI/HI. pt notes cough for several days without fever/chills. Patient states that the daughter called EMS as the patient was lying in a bathtub the patient states that she was generated take a bath she denies any falls, injuries, nausea, vomiting, vision changes, numbness, tingling, weakness , chest pain, back pain, neck pain, extremity pain. She denies any urinary complaints, diarrhea melena. The patient is noted to be hypoxic upon arrival, suspect COPD exacerbation patient was given nebulizers, steroids, we'll obtain chest x-ray, lab work, VBG. We'll observe for sobriety. If patient persistently hypoxic will consider admission for further management. 07/06/18 10:19 07/06/18 13:10 Blood work was reviewed it is unremarkable. The patient's chest x-ray is negative for acute pathology The patient is awake, alert, and with her with a normal gait, her respiratory status is normal without tachypnea. Her saturation is improved to 97% will discharge patient with treatment for her COPD with albuterol and prednisone. PMD follow-up. Return precautions discussed <Lencho Rodarte - Last Filed: 07/06/18 13:11>
[2018-07-06] MEDS ORDERED: ACETAMINOPHEN 500 MG TABLET (FP) PO ONE ×2 (10:03→10:04)
[2018-07-06] MEDS ORDERED: SODIUM CHLORIDE 1,000 ML IV STA (10:04)
[2018-07-06] MEDS ORDERED: ACETAMINOPHEN 325 MG TABLET (FP) ONE (10:05)
[2018-07-06 10:08] LABS: BASO % 0.9 % (0-2.0); EOS % 0.7 % (0-4.5); HEMATOCRIT 38.6 % (32.4-45.2); HEMOGLOBIN 13.5 GM/dL (10.7-15.3); LYMPH % 18.1 % (8-40); MCH 32.9 pg (25.7-33.7); MEAN CELL VOLUME 93.9 fl (80-96); MEAN PLT VOLUME 7.8 fl (7.5-11.1); MONO % 4.3 % (3.8-10.2); PLATELET COUNT 380 K/MM3 (134-434); RBC 4.11 M/mm3 (3.60-5.2); VENOUS PC02 61.4 mmHg (38-52); VENOUS PH 7.28 (7.32-7.42); VENOUS PO2 38.7 mmHg (28-48)
[2018-07-06] MEDS ORDERED: methylPREDNISolone NA SUCC 125 MG/2 ML VIAL ONE (10:22)
[2018-07-06 10:42] LABS: ALBUMIN 3.6 g/dl (3.4-5.0); ALK PHOS 78 U/L (45-117); ANION GAP 4 MMOL/L (8-16); BILIRUBIN,TOTAL 0.2 mg/dL (0.2-1); BLOOD UREA NITROGEN 10 mg/dL (7-18); CALCIUM 7.9 mg/dL (8.5-10.1); CHLORIDE 113 mmol/L (98-107); CO2 29 mmol/L (21-32); CREATININE 0.6 mg/dL (0.55-1.3); GLUCOSE,RANDOM 98 mg/dL (74-106); MAGNESIUM 2.3 mg/dL (1.8-2.4); SGOT/AST 37 U/L (15-37); SGPT/ALT 43 U/L (13-61); SODIUM 146 mmol/L (136-145); TOT PROT 6.6 g/dl (6.4-8.2)
[2018-07-06] MEDS ORDERED: LORazepam 2 MG/ML SDV VIAL ONE (11:35)
[2018-07-06] MEDS ORDERED: ALBUTEROL SO4 8 GM HFA INHALER IH ONE (13:12)
[2018-07-06 13:44] VITALS: BP 112/66; PULSE 84
== END 2018-07-06 14:54 | disposition home or self-care (01) ==
LOC: JER 09:21
PROC: 3E0F7GC Introduction of Other Therapeutic Substance into Respiratory Tract, Via Natural or Artificial Opening (ICD-10-PCS; principal; 2018-07-06)
DX: F10.120 Alcohol abuse with intoxication, uncomplicated (principal); R06.02 Shortness of breath; J44.9 Chronic obstructive pulmonary disease, unspecified
CPT/HCPCS: 36415; 71045-TC-FY; 80053; 82803; 83735; 84484; 85025; 99284-25; J7030